=== PATIENT | female | born 1930 | race Caucasian/White ===

== ENCOUNTER 2018-09-07 11:30 | Inpatient (IN) | payer OTHER ==
[~2018-09-07] VITALS: Ht 157.5 cm; Wt 68.0 kg
[~2018-09-07 11:30] MED LIST: ATIVAN2 MG PO; AVAPRO300 MG PO; CARDIZEM CD180 M1 PO; CARdura 2MG TABLET PO; COLACE100 MG PO; DILTIAZEM HCL90 MG PO; ELIQUIS2.5 MG PO; FAMOTIDINE20 MG PO; FUROSEMIDE20 MG PO; LOSARTAN POTASS50 MG; MILANTA; NORVASC2.5 MG PO; TOPROL XL100 M1; TOPROL XL100 M1 PO; TOPROL XL50 M1; XARELTO20 MG
[2018-09-08] MEDS ORDERED: DOXAZOSIN MESYLA2 MG PO (08:11)
== END 2018-09-16 16:40 | disposition home or self-care (01) | DRG 389 ==
LOC: ER 11:30 → SURH 22:21
PROVIDERS: ADMIT Surgery
PROC: BW21Y0Z Computerized Tomography (CT Scan) of Abdomen and Pelvis using Other Contrast, Unenhanced and Enhanced (ICD-10-PCS; principal; 2018-09-07)
PROC: 0DH67UZ Insertion of Feeding Device into Stomach, Via Natural or Artificial Opening (ICD-10-PCS; 2018-09-07)
PROC: 3E0G76Z Introduction of Nutritional Substance into Upper GI, Via Natural or Artificial Opening (ICD-10-PCS; 2018-09-07)
PROC: B246ZZZ Ultrasonography of Right and Left Heart (ICD-10-PCS; 2018-09-07)
PROC: 4A12X4Z Monitoring of Cardiac Electrical Activity, External Approach (ICD-10-PCS; 2018-09-08)
DX: K56.51 Intestinal adhesions [bands], with partial obstruction (principal); E87.1 Hypo-osmolality and hyponatremia; E44.0 Moderate protein-calorie malnutrition; K57.30 Diverticulosis of large intestine without perforation or abscess without bleeding; E86.0 Dehydration; D72.828 Other elevated white blood cell count; I48.2 Chronic atrial fibrillation; Z79.01 Long term (current) use of anticoagulants; I25.10 Atherosclerotic heart disease of native coronary artery without angina pectoris